=== PATIENT | female | born 2000 | race Two or more races ===

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

== ENCOUNTER 2018-03-13 21:50 | Emergency (ER) | payer OTHER ==
[~2018-03-13] VITALS: Ht 172.7 cm; Wt 102.6 kg
[~2018-03-13 21:50] MED LIST changes: +APAP325T4 PO; +COLA100C5 PO; +MACR100C43 PO; +MOTR200T44 PO; +NAPR-49 PO; -NAPR500T PO; +NORA0.35 PO; +PRENTAB9 PO
[2018-03-13] MEDS ORDERED: NS 1,000 ML IV ONE (23:00)
[2018-03-13] MEDS ORDERED: KETOROLAC 30 MG/ML VIAL (J1885) IV ONE (23:00)
[2018-03-13] MEDS ORDERED: ONDANSETRON 4MG/2ML VIAL (J2405) IV ONE (23:00)
[2018-03-13] MEDS ORDERED: LIDOCAINE VISCOUS 2% SOLN 15ML UDC SS ONE (23:00)
[2018-03-13 23:52] LABS: BASO % 0.1 % (0.0-1.0); EOS % 0.3 % (0.0-3.0); HEMATOCRIT 36.2 % (36.0-47.0); LYMPH # 1.7 10^3/uL (1.5-6.5); LYMPH % 22.8 % (24.0-44.0); MEAN CORPUSCULAR HEMOGLOBIN 28.9 pg (27.0-33.0); MEAN CORPUSCULAR HGB CONC 33.1 g/dl (32.0-36.5); MEAN CORPUSCULAR VOLUME 87.2 fl (80.0-96.0); MONO # 0.5 10^3/uL (0.0-0.8); MONO % 6.7 % (0.0-5.0); NEUTROPHILS # 5.1 10^3/uL (1.8-7.7); NEUTROPHILS % 69.8 % (36.0-66.0); PLATELET COUNT, AUTOMATED 209 10^3/uL (150-450); RED BLOOD COUNT 4.15 10^6/uL (4.00-5.40); WHITE BLOOD COUNT 7.3 10^3/uL (4.0-10.0)
[2018-03-14 00:02] LABS: INFLUENZA A AMPLIFICATION NEGATIVE (NEGATIVE); INFLUENZA B AMPLIFICATION NEGATIVE (NEGATIVE)
[2018-03-14 00:16] LABS: BLOOD UREA NITROGEN 7 MG/DL (7-18); CALCIUM LEVEL 8.2 MG/DL (8.5-10.1); CARBON DIOXIDE LEVEL 23 MEQ/L (21-32); CHLORIDE LEVEL 107 MEQ/L (98-107); CREATININE FOR GFR 0.54 MG/DL (0.55-1.30); GLUCOSE, FASTING 98 MG/DL (70-100); SODIUM LEVEL 140 MEQ/L (136-145)
[2018-03-14] MEDS ORDERED: ZOFR4TAB14 PO (00:29)
[2018-03-14] MEDS ORDERED: NAPR-49 PO (00:29)
[2018-03-14 02:00] VITALS: BP 117/64
--- NOTE | 2018-03-14 06:55 | REP ---
Clinical: Productive cough . Comparison: None . Technique: PA and lateral. Findings: The mediastinum and cardiac silhouette are normal. The lung alejandre are clear and without acute consolidation, effusion, or pneumothorax. The skeletal structures are intact and normal. Impression: 1. No acute cardiopulmonary process. Electronically Signed by Gunnar Thompson MD 03/14/2018 06:47 A
== END 2018-03-14 02:05 | disposition home or self-care (01) ==
LOC: M ED 21:50
DX: B34.9 Viral infection, unspecified (principal); R50.9 Fever, unspecified; R05 Cough; J02.9 Acute pharyngitis, unspecified; R19.7 Diarrhea, unspecified; R11.2 Nausea with vomiting, unspecified; M79.10 Myalgia, unspecified site; R53.83 Other fatigue; R51 Headache; Z88.8 Allergy status to other drugs, medicaments and biological substances; Z88.2 Allergy status to sulfonamides; Z91.048 Other nonmedicinal substance allergy status
CPT/HCPCS: 71046; 80048; 85025; 87502; 87880; 94640; 96374; 96375; 99284; J1885; J2405

== ENCOUNTER → 2018-04-20 | Outpatient (CLI) | payer OTHER ==
[~2018-04-20] MED LIST changes: -NAPR-49 PO; +NAPR-50 PO; +ZOFR4TAB14 PO
--- NOTE | 2018-04-20 19:55 | REP ---
Clinical: Pain recent trauma. Technique: AP, lateral, bilateral oblique views of the left ankle. Findings: Fixation for old medial malleolar fracture. No acute fracture or dislocation. Ankle mortise and tibial plafond are intact. Impression: No acute fracture dislocation. Electronically Signed by Gunnar Thompson MD 04/20/2018 07:47 P
== END ==
LOC: M LRY 19:33
PROVIDERS: ATTEND Physician Assistant
DX: S99.912A Unspecified injury of left ankle, initial encounter (principal); Y92.89 Other specified places as the place of occurrence of the external cause; Y93.89 Activity, other specified; X58.XXXA Exposure to other specified factors, initial encounter; Y99.8 Other external cause status

== ENCOUNTER 2018-05-23 20:03 | Emergency (ER) | payer OTHER ==
[~2018-05-23] VITALS: Ht 172.7 cm; Wt 102.3 kg
[2018-05-23] MEDS ORDERED: CYCL5TAB PO (20:59)
[2018-05-23 21:11] VITALS: BP 128/71
== END 2018-05-23 21:13 | disposition home or self-care (01) ==
LOC: M ED 20:03
DX: S13.4XXA Sprain of ligaments of cervical spine, initial encounter (principal); V49.49XA Driver injured in collision with other motor vehicles in traffic accident, initial encounter; Y92.410 Unspecified street and highway as the place of occurrence of the external cause; Z88.2 Allergy status to sulfonamides

== ENCOUNTER → 2018-09-03 | Outpatient (CLI) | payer OTHER ==
[~2018-09-03] MED LIST changes: +CYCL5TAB PO; -NAPR-50 PO; +NAPR-837 PO
--- NOTE | 2018-09-03 10:34 | REP ---
Are spine series: Five views. History: Low back pain radiating to the right leg. Findings: There are clips in right upper quadrant post cholecystectomy. Lumbar vertebral body heights are preserved. Alignment is normal. Disc spaces are maintained. Pedicles and posterior elements are intact. There is no evidence of spondylolysis or spondylolisthesis. Psoas margins are symmetric. Sacrum and SI joints are unremarkable. Visualized bowel gas pattern is normal. Impression: Negative radiographs of the lumbar spine. Clips in the right upper quadrant of the abdomen. Electronically Signed by Pardeep Norman MD 09/03/2018 10:25 A
== END ==
LOC: M WUC 09:38
PROVIDERS: ATTEND Chiropractor
DX: M54.16 Radiculopathy, lumbar region (principal)

== ENCOUNTER → 2018-09-14 | Outpatient (CLI) | payer OTHER ==
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
== END ==
LOC: M PLARAD 10:13
PROVIDERS: ATTEND Chiropractor
DX: M54.16 Radiculopathy, lumbar region (principal)

== ENCOUNTER → 2018-11-08 | Outpatient (REF) | payer OTHER ==
[2018-11-08 19:00] LABS: HEMATOCRIT 36.4 % (36.0-47.0); HEMOGLOBIN 12.1 g/dl (12.0-15.5); MEAN CORPUSCULAR HEMOGLOBIN 30.9 pg (27.0-33.0); MEAN CORPUSCULAR HGB CONC 33.2 g/dl (32.0-36.5); MEAN CORPUSCULAR VOLUME 92.9 fl (80.0-96.0); PLATELET COUNT, AUTOMATED 214 10^3/uL (150-450); RED BLOOD COUNT 3.92 10^6/uL (4.00-5.40); WHITE BLOOD COUNT 10.3 10^3/uL (4.0-10.0)
[2018-11-08 20:02] LABS: HCG, SERUM QUANTITATIVE 113372 MIU/ML
[2018-11-09 10:11] LABS: RUBELLA IgG QUALITATIVE IMMUNE (IMMUNE)
[2018-11-09 10:40] LABS: HEPATITIS C VIRUS ABY INDEX < 0.0 INDEX (<0.8)
[2018-11-09 10:41] LABS: HIV 1&2 SCREEN CENTAUR NEGATIVE (NEGATIVE)
== END ==
LOC: M LAB REF 17:14
PROVIDERS: ATTEND Obstetrics & Gynecology
DX: O36.80X0 Pregnancy with inconclusive fetal viability, not applicable or unspecified (principal)

== ENCOUNTER → 2019-03-26 | Outpatient (CLI) | payer OTHER ==
[2019-03-26 13:29] LABS: HEMATOCRIT 34.4 % (36.0-47.0); HEMOGLOBIN 11.1 g/dl (12.0-15.5); MEAN CORPUSCULAR HEMOGLOBIN 31.2 pg (27.0-33.0); MEAN CORPUSCULAR HGB CONC 32.3 g/dl (32.0-36.5); MEAN CORPUSCULAR VOLUME 96.6 fl (80.0-96.0); PLATELET COUNT, AUTOMATED 170 10^3/uL (150-450); RED BLOOD COUNT 3.56 10^6/uL (4.00-5.40); WHITE BLOOD COUNT 10.6 10^3/uL (4.0-10.0)
== END ==
LOC: M LAB 09:47
PROVIDERS: ATTEND Obstetrics & Gynecology
DX: Z36.89 Encounter for other specified antenatal screening (principal)

== ENCOUNTER 2019-04-15 20:46 | Emergency (ER) | payer OTHER ==
[~2019-04-15] VITALS: Ht 172.7 cm; Wt 94.1 kg
[2019-04-15] MEDS ORDERED: PRENTAB53 PO (20:58)
--- NOTE | 2019-04-15 23:03 | REPVR ---
PROCEDURE INFORMATION: Exam: US Duplex Right Lower Extremity Veins, Limited Exam date and time: 04/15/2019 10:49 PM Age: 18 years old Clinical indication: Pain; Other: Knee; Additional info: "knot" to vein behind right knee TECHNIQUE: Imaging protocol: Real-time Duplex ultrasound of the Right Lower Extremity with 2-D kemp scale, color Doppler flow and spectral waveform analysis with image documentation. Limited exam was focused on the right lower extremity veins. COMPARISON: No relevant prior studies available. FINDINGS: Right deep veins: Unremarkable. The common femoral, femoral, proximal profunda femoral and popliteal veins are patent without thrombus. Normal Doppler waveforms. Normal compressibility and/or augmentation response. Right superficial veins: Unremarkable. Saphenofemoral junction is patent without thrombus. Soft tissues: Unremarkable. IMPRESSION: No DVT of the right lower extremity. Electronically signed by: Diogenes Nava On 04/15/2019 23:03:11 PM
[2019-04-15 23:44] VITALS: BP 109/58
== END 2019-04-15 23:45 | disposition home or self-care (01) ==
LOC: M ED 20:46
DX: O22.03 Varicose veins of lower extremity in pregnancy, third trimester (principal); Z3A.30 30 weeks gestation of pregnancy; Z88.2 Allergy status to sulfonamides; Z91.09 Other allergy status, other than to drugs and biological substances

== ENCOUNTER → 2019-05-28 | Outpatient (REF) | payer OTHER ==
[~2019-05-28] MED LIST changes: +PRENTAB53 PO
== END ==
LOC: M LAB REF 12:15
PROVIDERS: ATTEND Obstetrics & Gynecology
DX: Z36.85 Encounter for antenatal screening for Streptococcus B (principal)

== ENCOUNTER 2019-05-30 18:21 | Outpatient (CLI) | payer OTHER ==
[~2019-05-30] VITALS: Ht 172.7 cm; Wt 97.8 kg
[2019-05-30 18:36] VITALS: BP 143/73
[2019-05-30 18:45] VITALS: BP 137/74
== END 2019-05-30 19:25 | disposition home or self-care (01) ==
LOC: M LDO 18:21
PROVIDERS: ATTEND Obstetrics & Gynecology
DX: Z03.71 Encounter for suspected problem with amniotic cavity and membrane ruled out (principal); Z88.2 Allergy status to sulfonamides; Z3A.36 36 weeks gestation of pregnancy
CPT/HCPCS: 59025; G0378; G0463

== ENCOUNTER → 2019-06-05 | Outpatient (CLI) | payer OTHER ==
[~2019-06-05] VITALS: Ht 172.7 cm; Wt 100.1 kg
[2019-06-05 18:01] VITALS: BP 124/69
[2019-06-05 18:57] VITALS: BP 139/70
--- NOTE | 2019-06-05 19:51 | IPN ---
DATE: 06/05/2019 Zabrina is a 18-year-old 4, para 2-0-1-2. She is at 37-1/7 weeks with an EDC of 06/24/2019 based on last menstrual period and confirmed by first trimester ultrasound. She presents to labor and delivery today with report of questionable spontaneous rupture of membranes. She does report an occasional contraction. Denies vaginal bleeding. She does have a pad on that is dry at this time. The fetus has been moving. Her care was initiated at [facility] in the first trimester. course has been complicated by a history of a prior delivery. OBSTETRIC HISTORY: 1. May 2014: 38 weeks gestation, 7 pound female, spontaneous vaginal delivery. 2. April 2016: 34 weeks gestation, 5 pound 4 ounce male, spontaneous vaginal delivery. 3. August 2017: 39 weeks, 8 pound 4 ounces, spontaneous vaginal delivery. OBSTETRIC LABORATORIES: A positive. Antibody screen negative. Rubella immune. VDRL was nonreactive. Urine culture no growth. Hepatitis B surface antigen negative. HIV negative. Hepatitis C antibody nonreactive. Gonorrhea and chlamydia negative. Group B Streptococcus (GBS) negative. Gestational diabetic screening 139. PAST MEDICAL HISTORY: No chronic medical conditions. SURGERIES: 1. Ankle. 2. Tonsillectomy. 3. Cholecystectomy. 4. Right arm surgery. 5. Adenoidectomy. FAMILY HISTORY: Diabetes. SOCIAL HISTORY: The patient is . She is a nonsmoker. Denies alcohol and drug use. She denies history of sexually transmitted infections and denies history of abuse - physical, sexual and emotional. ALLERGIES: SULFA. CURRENT MEDICATIONS: - vitamins - iron OBJECTIVE: Temperature 98, pulse 100, respiration 18, blood pressure 124/69. She is alert and oriented times three. She is smiling and talkative. heart rate is 135, moderate variability. Positive accelerations. No decelerations. There is an occasional contraction. STERILE SPECULUM EXAM: Negative Valsalva. Negative pooling. Negative Nitrazine. Negative ferning. STERILE VAGINAL EXAM: Fingertip dilated. Thick, ballottable station. ASSESSMENT: Intrauterine at 37-1/7 weeks. heart rate category 1. Not ruptured. Not in labor. PLAN: Discharge the patient home. She is scheduled on 06/11/2019 for a routine visit at [facility]. I did review signs and symptoms of active labor, movement counts and danger signs to report and I did review access to care. The patient had all her questions answered and requested to be discharged.
== END ==
LOC: M LDO 17:45
PROVIDERS: ATTEND Advanced Practice Midwife
DX: O47.1 False labor at or after 37 completed weeks of gestation (principal); Z3A.37 37 weeks gestation of pregnancy
CPT/HCPCS: 59025; G0378; G0463

== ENCOUNTER 2019-06-25 02:32 | Inpatient (IN) | payer OTHER ==
[~2019-06-25] VITALS: Ht 172.7 cm; Wt 97.5 kg
[2019-06-25] VITALS (23 sets, daily range): BP systolic 106–140; BP diastolic 56–89
[2019-06-25] MEDS ORDERED: LACTATED RINGER'S 1000 ML IV STA (02:55)
[2019-06-25] MEDS ORDERED: LR 1,000 ML IV SCH (02:55)
[2019-06-25 03:12] LABS: HEMATOCRIT 35.3 % (36.0-47.0); HEMOGLOBIN 11.4 g/dl (12.0-15.5); MEAN CORPUSCULAR HEMOGLOBIN 28.5 pg (27.0-33.0); MEAN CORPUSCULAR HGB CONC 32.3 g/dl (32.0-36.5); MEAN CORPUSCULAR VOLUME 88.3 fl (80.0-96.0); PLATELET COUNT, AUTOMATED 160 10^3/uL (150-450); WHITE BLOOD COUNT 9.1 10^3/uL (4.0-10.0)
[2019-06-25] MEDS ORDERED: FENTANYL 2MCG/ML ROPIVACAINE 0.2% IN 0.9% NACL 100ML IVBAG As Ordered ONE (03:39)
[2019-06-25] MEDS ORDERED: OXYTOCIN 30 UNITS IN 0.9% NaCl 500ML IV BAG (J2590) As Ordered ONE (04:00)
[2019-06-25] MEDS ORDERED: diphenhydrAMINE 50MG/ML VIAL (J1200) IV PRN (05:00)
[2019-06-25] MEDS ORDERED: NALOXONE INJ 0.4 MG/1 ML VIAL (J2310) IV PRN (05:00)
[2019-06-25] MEDS ORDERED: OXYTOCIN DRIP 30 UNITS in IV 1 EA IV SCH ×2 (05:00→05:39)
[2019-06-25] MEDS ORDERED: EPIDURAL/PCA KEYS XX PRN (05:00)
[2019-06-25] MEDS ORDERED: EPIDURAL COMMENT XX SCH (05:00)
[2019-06-25] MEDS ORDERED: ONDANSETRON 4MG/2ML VIAL (J2405) IV PRN (05:00)
[2019-06-25] MEDS ORDERED: REFRIGERATOR IV KEYS XX PRN (05:00)
[2019-06-25] MEDS ORDERED: FENTANYL/ROPIVACAINE/NACL BAG 100 ML EPIDURAL SCH (05:00)
[2019-06-25] MEDS ORDERED: LACTATED RINGER'S 1000 ML IV PRN (05:00)
[2019-06-25] MEDS ORDERED: ePHEDrine SULFATE 25 MG/5 ML(5MG/ML) SYRINGE IV PRN (05:00)
[2019-06-25 05:44] LABS: CORD GAS HCO3 V 22.4 MEQ/L; CORD GAS O2 SAT V 59.6 %; CORD GAS PH V 7.306 UNITS; CORD GAS PO2 V 23.8 mmHg; CORD GAS SBC V 20.3 MEQ/L; CORD GAS TCO2 V 23.8 MEQ/L
[2019-06-25 05:45] LABS: CORD GAS ABE A -2.3; CORD GAS HCO3 A 20.6 MEQ/L; CORD GAS O2 SAT A 85.8 %; CORD GAS PCO2 A 30.9 mmHg; CORD GAS PH A 7.441 UNITS; CORD GAS PO2 A 38.6 mmHg; CORD GAS SBC A 22.2 MEQ/L; CORD GAS TCO2 A 21.5 MEQ/L
[2019-06-25] MEDS ORDERED: ACETAMINOPHEN TAB 650MG DOSE (2X325MG) PO PRN (05:45)
[2019-06-25] MEDS ORDERED: METHYLERGONOVINE MALEATE 0.2 MG TAB PO PRN (05:45)
[2019-06-25] MEDS ORDERED: MEASLES,MUMPS,RUBELLA VACCINE INJ (MMR-II) (90707) SC SCH (05:45)
[2019-06-25] MEDS ORDERED: IBUPROFEN 800 MG TAB PO PRN (05:45)
[2019-06-25] MEDS ORDERED: ANUSOL HC CREAM 30GM TOP PRN (05:45)
[2019-06-25] MEDS ORDERED: DIBUCAINE 1% OINTMENT 30GM TOP PRN (05:45)
[2019-06-25] MEDS ORDERED: RHOGAM 300 MCG (1500 IU) INJ (J2790) IM SCH (05:45)
[2019-06-25] MEDS ORDERED: DOCUSATE SODIUM 100 MG CAP PO PRN (05:45)
[2019-06-25] MEDS ORDERED: ACETAMINOPHEN 500 MG TAB PO PRN (05:45)
[2019-06-25] MEDS ORDERED: IBUPROFEN 600 MG TAB PO PRN (05:45)
[2019-06-25] MEDS ORDERED: METHYLERGONOVINE MALEATE 0.2 MG/ML VIAL (J2210) IM STA (06:25)
[2019-06-25] MEDS ORDERED: METHYLERGONOVINE MALEATE 0.2 MG/ML VIAL (J2210) As Ordered ONE (06:26)
--- NOTE | 2019-06-25 06:43 | HPE ---
DATE OF ADMISSION: 06/25/2019 Zabrina is a 19-year-old female, 4, para 2-1-0-3, with an expected date of confinement (EDC) of 06/24/2019, estimated gestational age (EGA) 40 and 1/7 weeks gestation who presented to labor and delivery with complaints of contractions every four to five minutes. Upon evaluation, she was found to be in active labor. At this point, a decision was made for admission. Her record was reviewed which was essentially unremarkable. She initiated care at approximately 8 weeks gestation. LABS: Blood type is A+. Rubella immune. Hepatitis negative. HIV negative. GC and chlamydia negative. 1-hour sugar testing was within normal limits. Her GBS is negative. PAST MEDICAL HISTORY: Denies. PAST SURGICAL HISTORY: Significant for ankle surgery x2, tonsillectomy, cholecystectomy, and right arm surgery. SOCIAL HISTORY: She denies any alcohol, drugs or cigarette smoking. She is . REVIEW OF SYSTEMS: Unremarkable. FAMILY HISTORY: Significant for diabetes. MEDICATIONS: vitamin. ALLERGIES: NO KNOWN DRUG ALLERGIES. PHYSICAL EXAMINATION: Obese female in no acute distress. Abdomen: Soft, nontender, nondistended. Extremities: No clubbing, cyanosis or edema. Vaginal Exam: 8 cm, 100%, fetus at -2 station. Artificial rupture of membrane performed with clear fluid noted. heart rate tracing reviewed, category one tracing, with a low baseline heart rate in the 110-120s. ASSESSMENT: Intrauterine at 40-1/7 weeks gestation in active labor. GBS negative. PLAN: Admit to labor and delivery. Routine labs sent. Pain management discussed. The patient opts for an epidural. will continue to monitor. Anticipate delivery.
--- NOTE | 2019-06-25 07:39 | DN ---
DATE: 06/25/2019 Zabrina is a 19-year-old female 4, para 2-1-0-3, who was admitted at 40-1/7 weeks gestation in active labor. She progressed to fully dilated after artificial rupture of membrane and epidural. She then pushed and delivered a live male infant in right occiput anterior position with a nuchal cord times one. 9 and 9 birthweight 7 pounds 10 ounces. Placenta delivered spontaneously intact. Three-vessel cord. Perineum, vagina and cervix inspected. No laceration noted. Estimated blood loss 300 mL. Both mother and baby in stable condition.
[2019-06-25] MEDS ORDERED: diphenhydrAMINE CREAM 30GM TOP PRN (11:30)
[2019-06-25] MEDS: PRENATAL VITAMINS CHEWABLE TABLET PO SCH (11:48)
[2019-06-26 06:00] VITALS: BP 104/57
[2019-06-26] MEDS: PRENATAL VITAMINS CHEWABLE TABLET PO SCH (09:00)
[2019-06-26] MEDS ORDERED: diphenhydrAMINE 50MG CAP PO PRN (09:15)
[2019-06-26] MEDS: ANUSOL HC CREAM 30GM TOP SCH ×2 (10:37→14:28)
== END 2019-06-26 14:40 | disposition home or self-care (01) | DRG 807 ==
LOC: M LDO 02:32 → M LDI 02:50 → M OBS 12:39
PROVIDERS: ADMIT Obstetrics & Gynecology; ATTEND Obstetrics & Gynecology
PROC: 10E0XZZ Delivery of Products of Conception, External Approach (ICD-10-PCS; principal; 2019-06-25)
PROC: 10907ZC Drainage of Amniotic Fluid, Therapeutic from Products of Conception, Via Natural or Artificial Opening (ICD-10-PCS; 2019-06-25)
DX: O48.0 Post-term pregnancy (principal); Z37.0 Single live birth; Z3A.40 40 weeks gestation of pregnancy

== ENCOUNTER → 2022-07-04 | Outpatient (REF) ==
[2022-07-04 14:38] LABS: RSV AMPLIFICATION NEGATIVE (NEGATIVE)
== END ==
LOC: M EMP 12:35
PROVIDERS: ATTEND Family Medicine
DX: Z20.822 Contact with and (suspected) exposure to COVID-19 (principal); Z11.52 Encounter for screening for COVID-19

== ENCOUNTER → 2022-08-19 | Outpatient (REF) | LOC: M EMP 11:30 | PROVIDERS: ATTEND Family Medicine | DX: Z11.52 Encounter for screening for COVID-19 (principal) ==

== ENCOUNTER → 2022-08-22 | Outpatient (REF) ==
[2022-08-22 13:44] LABS: RSV AMPLIFICATION NEGATIVE (NEGATIVE)
== END ==
LOC: M EMP 12:03
PROVIDERS: ATTEND Family Medicine
DX: Z20.828 Contact with and (suspected) exposure to other viral communicable diseases (principal)

== ENCOUNTER 2022-09-08 21:32 | Emergency (ER) | payer OTHER ==
[~2022-09-08] VITALS: Ht 172.7 cm; Wt 97.1 kg
[2022-09-09 00:54] VITALS: BP 120/68; TEMP 97.8; O2SAT 98
== END 2022-09-09 01:18 | disposition home or self-care (01) ==
LOC: M ED 21:32
DX: S93.402A Sprain of unspecified ligament of left ankle, initial encounter (principal); R51.9 Headache, unspecified; F17.200 Nicotine dependence, unspecified, uncomplicated; F10.10 Alcohol abuse, uncomplicated; Z88.2 Allergy status to sulfonamides; Z91.048 Other nonmedicinal substance allergy status

== ENCOUNTER 2022-09-12 11:58 | Emergency (ER) | payer OTHER ==
[2022-09-12 11:59] VITALS: TEMP 98.1
[2022-09-12] MEDS ORDERED: IBUPROFEN 800 MG TAB PO ONE (15:15)
[2022-09-12 15:26] VITALS: BP 112/84; O2SAT 97
== END 2022-09-12 15:27 | disposition home or self-care (01) ==
LOC: M ED 11:58
DX: S93.492A Sprain of other ligament of left ankle, initial encounter (principal); X50.0XXA Overexertion from strenuous movement or load, initial encounter; Y92.009 Unspecified place in unspecified non-institutional (private) residence as the place of occurrence of the external cause; Y93.01 Activity, walking, marching and hiking; Y99.8 Other external cause status; Z88.2 Allergy status to sulfonamides; Z88.8 Allergy status to other drugs, medicaments and biological substances

== ENCOUNTER → 2022-09-23 | Outpatient (CLI) | payer OTHER | LOC: M SOG 16:05 | PROVIDERS: ATTEND Orthopaedic Surgery | DX: M79.672 Pain in left foot (principal) ==

== ENCOUNTER → 2022-11-15 | Outpatient (CLI) | payer OTHER ==
[2022-11-15 15:03] LABS: HEMATOCRIT 36.2 % (36.0-47.0); HEMOGLOBIN 11.6 g/dl (12.0-15.5); MEAN CORPUSCULAR HEMOGLOBIN 28.8 pg (27.0-33.0); MEAN CORPUSCULAR VOLUME 89.8 fl (80.0-96.0); PLATELET COUNT, AUTOMATED 226 10^3/uL (150-450); RED BLOOD COUNT 4.03 10^6/uL (4.00-5.40); WHITE BLOOD COUNT 9.1 10^3/uL (4.0-10.0)
[2022-11-15 15:57] LABS: HIV 1&2 SCREEN NEGATIVE (NEGATIVE)
[2022-11-15 16:05] LABS: HEPATITIS C VIRUS ABY INDEX 0.14 INDEX (<0.8)
[2022-11-15 21:14] LABS: CHLAMYDIA DNA AMPLIFICATION NEGATIVE (NEGATIVE); GC DNA AMPLIFICATION NEGATIVE (NEGATIVE)
== END ==
LOC: M PLALAB 10:41
PROVIDERS: ATTEND Advanced Practice Midwife
DX: Z34.81 Encounter for supervision of other normal pregnancy, first trimester (principal)

== ENCOUNTER → 2023-01-18 | Outpatient (CLI) | payer MEDICAID, OTHER, SELFPAY | LOC: M WHC 12:45 | PROVIDERS: ATTEND Specialist | DX: Z34.82 Encounter for supervision of other normal pregnancy, second trimester (principal); Z3A.19 19 weeks gestation of pregnancy ==

== ENCOUNTER → 2023-03-22 | Outpatient (CLI) | payer MEDICAID ==
[2023-03-22 13:55] LABS: HEMATOCRIT 29.6 % (36.0-47.0); HEMOGLOBIN 9.4 g/dl (12.0-15.5); MEAN CORPUSCULAR HEMOGLOBIN 28.7 pg (27.0-33.0); MEAN CORPUSCULAR HGB CONC 31.8 g/dl (32.0-36.5); MEAN CORPUSCULAR VOLUME 90.2 fl (80.0-96.0); PLATELET COUNT, AUTOMATED 224 10^3/uL (150-450); RED BLOOD COUNT 3.28 10^6/uL (4.00-5.40); WHITE BLOOD COUNT 8.6 10^3/uL (4.0-10.0)
== END ==
LOC: M PLALAB 08:34
PROVIDERS: ATTEND Advanced Practice Midwife
DX: Z34.92 Encounter for supervision of normal pregnancy, unspecified, second trimester (principal)

== ENCOUNTER → 2023-03-31 | Outpatient (CLI) | payer MEDICAID, OTHER | LOC: M LAB 07:30 | PROVIDERS: ATTEND Advanced Practice Midwife | DX: O99.810 Abnormal glucose complicating pregnancy (principal) ==

== ENCOUNTER 2023-04-10 13:18 | Outpatient (CLI) | payer MEDICAID ==
[~2023-04-10] VITALS: Ht 172.7 cm; Wt 100.0 kg
[~2023-04-10 13:18] MED LIST changes: +ALBUTEROL SULFATE 2.5MG/0.5ML INH NEB SOLN INH PRN; +EPINEPHrine INJ 1 MG/ML 1ML AMP IM PRN; +diphenhydrAMINE 50MG/ML VIAL IV PRN; +methylPREDNISolone 125MG 2ML VIAL IV PRN
[2023-04-10 13:35] VITALS: BP 110/61; O2SAT 98
[2023-04-10] MEDS ORDERED: NS 1,000 ML IV SCH (13:55)
[2023-04-10] MEDS ORDERED: FERRIC CARBOXYMALTOSE INJ 750 MG in NS 250 ML (>50kg) IV ONE ×3 (13:55)
== END 2023-04-10 15:30 | disposition home or self-care (01) ==
LOC: M INFU 13:18
PROVIDERS: ATTEND Advanced Practice Midwife
DX: O99.013 Anemia complicating pregnancy, third trimester (principal); Z3A.00 Weeks of gestation of pregnancy not specified; Z88.2 Allergy status to sulfonamides; Z88.3 Allergy status to other anti-infective agents
CPT/HCPCS: 96365; J1439

== ENCOUNTER 2023-04-17 08:05 | Outpatient (CLI) | payer MEDICAID ==
[~2023-04-17] VITALS: Ht 172.7 cm; Wt 100.0 kg
[2023-04-17 08:05] VITALS: BP 118/69; O2SAT 97
[~2023-04-17 08:05] MED LIST changes: +FERRIC CARBOXYMALTOSE INJ 750 MG in NS 250 ML (>50kg) IV ONE; +NS 1,000 ML IV SCH
[2023-04-17 09:15] VITALS: BP 116/61; O2SAT 97
== END 2023-04-17 09:45 | disposition home or self-care (01) ==
LOC: M INFU 08:05
PROVIDERS: ATTEND Advanced Practice Midwife
DX: O99.013 Anemia complicating pregnancy, third trimester (principal); Z3A.00 Weeks of gestation of pregnancy not specified; Z88.2 Allergy status to sulfonamides; Z88.3 Allergy status to other anti-infective agents
CPT/HCPCS: 96365; J1439

== ENCOUNTER → 2023-05-16 | Outpatient (REF) | payer MEDICAID ==
[~2023-05-16] MED LIST changes: -ALBUTEROL SULFATE 2.5MG/0.5ML INH NEB SOLN INH PRN; +B-12100010 PO; -EPINEPHrine INJ 1 MG/ML 1ML AMP IM PRN; -FERRIC CARBOXYMALTOSE INJ 750 MG in NS 250 ML (>50kg) IV ONE; -NS 1,000 ML IV SCH; -diphenhydrAMINE 50MG/ML VIAL IV PRN; -methylPREDNISolone 125MG 2ML VIAL IV PRN
== END ==
LOC: M SFHCWAGY 10:50
PROVIDERS: ATTEND Advanced Practice Midwife
DX: Z36.85 Encounter for antenatal screening for Streptococcus B (principal)

== ENCOUNTER 2023-05-17 12:56 | Outpatient (CLI) | payer MEDICAID ==
[~2023-05-17] VITALS: Ht 172.7 cm; Wt 105.7 kg
[~2023-05-17 12:56] MED LIST changes: -B-12100010 PO
[2023-05-17 13:12] VITALS: BP 126/70
[2023-05-17] MEDS ORDERED: HOME MED LIST COMPLETE! XX SCH ×2 (13:15→16:10)
[2023-05-17 15:34] VITALS: BP 123/69
[2023-05-17] MEDS ORDERED: B-12100010 PO (16:08)
== END 2023-05-17 15:45 | disposition home or self-care (01) ==
LOC: M LDO 12:56
PROVIDERS: ATTEND Advanced Practice Midwife
DX: O26.893 Other specified pregnancy related conditions, third trimester (principal); N89.8 Other specified noninflammatory disorders of vagina; Z3A.36 36 weeks gestation of pregnancy
CPT/HCPCS: 59025; G0463

== ENCOUNTER → 2023-05-25 | Outpatient (CLI) | payer MEDICAID, OTHER ==
[~2023-05-25] MED LIST changes: +B-12100010 PO
[2023-05-25 16:14] LABS: HEMATOCRIT 34.8 % (36.0-47.0); HEMOGLOBIN 11.2 g/dl (12.0-15.5); MEAN CORPUSCULAR HEMOGLOBIN 29.6 pg (27.0-33.0); MEAN CORPUSCULAR HGB CONC 32.2 g/dl (32.0-36.5); MEAN CORPUSCULAR VOLUME 92.1 fl (80.0-96.0); PLATELET COUNT, AUTOMATED 161 10^3/uL (150-450); RED BLOOD COUNT 3.78 10^6/uL (4.00-5.40); WHITE BLOOD COUNT 8.1 10^3/uL (4.0-10.0)
== END ==
LOC: M PLALAB 14:57
PROVIDERS: ATTEND Advanced Practice Midwife
DX: O99.013 Anemia complicating pregnancy, third trimester (principal); D64.9 Anemia, unspecified; Z3A.00 Weeks of gestation of pregnancy not specified

== ENCOUNTER → 2023-07-12 | Outpatient (REF) | payer OTHER, MEDICAID | LOC: M LAB REF 12:14 | PROVIDERS: ATTEND Nurse Practitioner Family | DX: R30.0 Dysuria (principal) ==

== ENCOUNTER → 2024-02-12 | Outpatient (CLI) | payer MEDICAID, OTHER ==
[~2024-02-12] MED LIST changes: -CYCL5TAB PO; +CYCL5TAB4 PO
== END ==
LOC: M WHC 16:09
PROVIDERS: ATTEND Obstetrics & Gynecology
DX: Z53.9 Procedure and treatment not carried out, unspecified reason (principal)

== ENCOUNTER → 2024-03-17 | Outpatient (REF) | payer OTHER | LOC: M LAB REF 18:08 | PROVIDERS: ATTEND Student in an Organized Health Care Education/Training Program | DX: R30.0 Dysuria (principal) ==

== ENCOUNTER → 2024-05-02 | Outpatient (CLI) | payer OTHER ==
[2024-05-02 18:51] LABS: HEMATOCRIT 38.9 % (36.0-47.0); HEMOGLOBIN 12.6 g/dl (12.0-15.5); MEAN CORPUSCULAR HEMOGLOBIN 29.8 pg (27.0-33.0); MEAN CORPUSCULAR HGB CONC 32.4 g/dl (32.0-36.5); PLATELET COUNT, AUTOMATED 281 10^3/uL (150-450); RED BLOOD COUNT 4.23 10^6/uL (4.00-5.40); WHITE BLOOD COUNT 7.4 10^3/uL (4.0-10.0)
== END ==
LOC: M PLALAB 14:47
PROVIDERS: ATTEND Obstetrics & Gynecology
DX: N93.9 Abnormal uterine and vaginal bleeding, unspecified (principal)

== ENCOUNTER → 2024-05-20 | Outpatient (CLI) | payer OTHER | LOC: M RAD 10:33 | PROVIDERS: ATTEND Nurse Practitioner Family | DX: N83.201 Unspecified ovarian cyst, right side (principal) ==

== ENCOUNTER → 2024-05-21 | Outpatient (REF) | payer MEDICAID, OTHER ==
[2024-05-24 11:52] LABS: HPV APTIMA Not Detected (Not Detected)
== END ==
LOC: M SFHCWAGY 07:55
PROVIDERS: ATTEND Obstetrics & Gynecology
DX: R87.615 Unsatisfactory cytologic smear of cervix (principal)

== ENCOUNTER → 2024-06-27 | Outpatient (REF) | payer MEDICAID, OTHER | LOC: M SFHCWAGY 13:18 | PROVIDERS: ATTEND Obstetrics & Gynecology | DX: Z53.9 Procedure and treatment not carried out, unspecified reason (principal) ==

== ENCOUNTER 2024-07-05 08:58 | Day surgery (SDC) | payer OTHER ==
[~2024-07-05] VITALS: Ht 172.7 cm; Wt 100.0 kg
[~2024-07-05 08:58] MED LIST changes: +ACETAMINOPHEN *IV* 1,000 MG in APPROPRIATE DILUENT 0 ML IV ONE
[2024-07-05] MEDS ORDERED: LIDOCAINE 1% SDV 5ML VIAL SC PRN (09:25)
[2024-07-05] MEDS ORDERED: LR 1,000 ML IV SCH ×2 (09:25→15:05)
[2024-07-05 09:50] LABS: HEMATOCRIT 37.1 % (36.0-47.0); HEMOGLOBIN 12.2 g/dl (12.0-15.5); MEAN CORPUSCULAR HEMOGLOBIN 28.8 pg (27.0-33.0); MEAN CORPUSCULAR HGB CONC 32.9 g/dl (32.0-36.5); MEAN CORPUSCULAR VOLUME 87.5 fl (80.0-96.0); PLATELET COUNT, AUTOMATED 296 10^3/uL (150-450); RED BLOOD COUNT 4.24 10^6/uL (4.00-5.40); WHITE BLOOD COUNT 7.4 10^3/uL (4.0-10.0)
[2024-07-05] MEDS: SCOPOLAMINE 1MG TRANSDERMAL PATCH TOP ONE (10:18)
[2024-07-05 10:39] LABS: ALBUMIN 3.8 G/DL (3.2-5.2); ALKALINE PHOSPHATASE 104 U/L (35-104); ALT/SGPT 123 U/L (7.0-40); AST/SGOT 39 U/L (<34); BILIRUBIN,TOTAL 0.3 MG/DL (0.3-1.2); BLOOD UREA NITROGEN 12 MG/DL (9-23); CALCIUM LEVEL 8.9 MG/DL (8.5-10.1); CARBON DIOXIDE LEVEL 27 MMOL/L (20-31); CHLORIDE LEVEL 106 MMOL/L (98-107); CREATININE FOR GFR 0.66 MG/DL (0.55-1.30); GLOMERULAR FILTRATION RATE > 90.0 (>60); GLUCOSE, FASTING 87 MG/DL (60-100); HCG, SERUM QUALITATIVE NEGATIVE (NEGATIVE); POTASSIUM SERUM 4.3 MMOL/L (3.5-5.1); SODIUM LEVEL 141 MMOL/L (136-145); TOTAL PROTEIN 7.3 G/DL (5.7-8.2)
[2024-07-05] MEDS ORDERED: FLUORESCEIN 10% (100MG/ML) 5ML VIAL As Ordered ONE (12:05)
[2024-07-05] MEDS: ceFAZolin SOD 2 GM IV ONCE IV ONE (12:56)
[2024-07-05] MEDS ORDERED: dexmedeTOMIDine (4MCG/ML)200MCG/50ML BTL (PRECEDEX) As Ordered ONE (13:09)
[2024-07-05] MEDS ORDERED: fentaNYL 250 MCG/5 ML INJECTION As Ordered ONE (13:09)
[2024-07-05] MEDS ORDERED: LIDOCAINE 2% 100MG/5ML SDV (FOR ANES.) As Ordered ONE (13:09)
[2024-07-05] MEDS ORDERED: ROCURONIUM BROMIDE 50MG/5ML VIAL As Ordered ONE (13:09)
[2024-07-05] MEDS ORDERED: propofoL 200 MG/20 ML VIAL As Ordered ONE (13:09)
[2024-07-05] MEDS ORDERED: MIDAZOLAM INJ 2MG/2ML VIAL As Ordered ONE (13:09)
[2024-07-05] MEDS ORDERED: ONDANSETRON 4MG 2ML VIAL As Ordered ONE (13:09)
[2024-07-05] MEDS ORDERED: ePHEDrine SULFATE 25 MG/5 ML(5MG/ML) SYRINGE As Ordered ONE (13:16)
[2024-07-05] MEDS ORDERED: GLYCOPYRROLATE INJ 0.2 MG/ML 2 ML VIAL As Ordered ONE (13:31)
[2024-07-05] MEDS ORDERED: HYDROmorphone HCL 2MG/ML 1ML VIAL As Ordered ONE (13:48)
[2024-07-05] MEDS ORDERED: KETOROLAC 30 MG/ML 1ML VIAL As Ordered ONE (14:47)
[2024-07-05] MEDS ORDERED: HYDROMORPHONE HCL 0.5 MG/ 0.5 ML SYRINGE IV PRN (15:05)
[2024-07-05] MEDS ORDERED: oxyCODONE 5MG TAB PO PRN (15:05)
[2024-07-05] MEDS ORDERED: fentaNYL 100 MCG/2 ML INJECTION IV PRN (15:05)
[2024-07-05] MEDS ORDERED: ONDANSETRON 4MG 2ML VIAL IV PRN (15:05)
[2024-07-05 16:32] VITALS: BP 114/62; TEMP 97.9; O2SAT 97
== END 2024-07-05 16:42 | disposition home or self-care (01) ==
LOC: M SDC 08:58
PROVIDERS: ATTEND Obstetrics & Gynecology
DX: N72 Inflammatory disease of cervix uteri (principal); N85.8 Other specified noninflammatory disorders of uterus; Z88.2 Allergy status to sulfonamides; Z88.8 Allergy status to other drugs, medicaments and biological substances; Z91.048 Other nonmedicinal substance allergy status; F17.290 Nicotine dependence, other tobacco product, uncomplicated
CPT/HCPCS: 36415; 58571; 80053; 84703; 85027; 86850; 86900; 86901; 88307; J0665; J0690; J1100; J1171; J1596; J1885; J2250; J2405; J3010; S2900